=== PATIENT | female | born 1985 | race Caucasian/White ===

== ENCOUNTER 2017-06-22 13:53 | Emergency (ER) | payer SELFPAY ==
[2017-06-22] MEDS ORDERED: Ketorolac Tromethamine 30 MG/ML VIAL ONE (14:27)
--- NOTE | 2017-06-22 14:57 | RAD ---
LEFT WRIST THREE VIEWS: History: Wrist pain. FINDINGS: There are no definitive signs of any fracture or dislocation. On the AP projection there is some subt le angulation to the cortex of the distal radius near the diametaphyseal junction but I do not see an y definite abnormality on the other views. I would think this unlikely to represent a fracture. Clini venus correlation as to whether there has been trauma. IMPRESSION: No definitive signs of fracture as discussed above. POS: [facility]
--- NOTE | 2017-06-22 14:58 | RAD ---
LEFT HAND THREE VIEWS: History: Left hand pain. FINDINGS/IMPRESSION: No acute fracture, dislocation, or bony destruction is seen. POS: [facility]
== END 2017-06-22 15:17 | disposition home or self-care (01) ==
LOC: ERS 13:53
DX: S52.522A Torus fracture of lower end of left radius, initial encounter for closed fracture (principal); F41.9 Anxiety disorder, unspecified; W19.XXXA Unspecified fall, initial encounter
CPT/HCPCS: 96372; J1885